=== PATIENT | female | born 1995 | race Caucasian/White ===

== ENCOUNTER 2021-07-21 13:54 | Emergency (ER) | payer OTHER ==
[2021-07-21] MEDS ORDERED: Ibuprofen 400 MG Tab PO ONE (13:55)
== END 2021-07-21 15:12 | disposition home or self-care (01) ==
LOC: JP.ED 13:54
DX: M25.571 Pain in right ankle and joints of right foot (principal); Z88.0 Allergy status to penicillin; Z88.1 Allergy status to other antibiotic agents; V49.50XA Passenger injured in collision with unspecified motor vehicles in traffic accident, initial encounter; Y92.410 Unspecified street and highway as the place of occurrence of the external cause
CPT/HCPCS: 73590; 73610; 99282; 99284; A9270